=== PATIENT | male | born 1980 | race Caucasian/White ===

== ENCOUNTER 2020-07-26 20:27 | Emergency (ER) | payer OTHER ==
[~2020-07-26] VITALS: Ht 167.6 cm; Wt 77.3 kg
[2020-07-26 20:33] VITALS: TEMP 97.3
[2020-07-26] MEDS ORDERED: ADDERALL XR20 MG PO (20:52)
[2020-07-26] MEDS ORDERED: CEPHALEXIN500 M1 PO (21:51)
[2020-07-26 21:55] VITALS: BP 124/71; PULSE 72
== END 2020-07-26 22:02 | disposition home or self-care (01) ==
LOC: COL.ER 20:27
DX: S61.412A Laceration without foreign body of left hand, initial encounter (principal); W31.0XXA Contact with mining and earth-drilling machinery, initial encounter; Y92.009 Unspecified place in unspecified non-institutional (private) residence as the place of occurrence of the external cause